=== PATIENT | male | born 1955 | race Caucasian/White ===

== ENCOUNTER 2018-08-10 22:14 | Emergency (ER) | payer OTHER ==
[2018-08-10 22:17] VITALS: TEMP 98.4; BMI 25.1
--- NOTE | 2018-08-11 00:16 | PDOC ---
History of Present Illness - General Chief Complaint: Asthma Stated Complaint: ASTHMA Time Seen by Provider: 08/11/18 00:15 History Source: Patient Exam Limitations: No Limitations - History of Present Illness Initial Comments: 08/11/18 00:30 63 year old male with PMH asthma, HTN, HLD presented to ED for shortness of breath x2 days. Pt stated he moved into a new apartment 2-3 weeks ago, that was recently found to have mold. Pt admitted to shortness of breath, cough (brown sputum), subjective fever, nausea. Pt had sore throat, runny nose x3 days ago that resolved. Pt denied chest pain, lower extremity swelling, vomiting, diarrhea, abdominal pain, blood in urine. Pt stated he normally uses his rescue inhaler <1X a month, but has been using it 7-8X a day in the last 2 days without relief of his symptoms. Past History - Past Medical History Allergies/Adverse Reactions: Allergies Allergy/AdvReac Type Severity Reaction Status Date / Time No Known Allergies Allergy Verified 08/10/18 22:18 Home Medications: Ambulatory Orders Albuterol 0.083% Nebulizer Sridevi [Ventolin 0.083% Nebulizer Soln -] 1 neb NEB Q4H #30 vial 08/11/18 Nebulizer Accessories [Adult Aerosol Mask] 1 each MC DAILY #1 each 08/11/18 Nebulizer [Compact Ultrasonic Nebulizer] 1 each MC DAILY #1 each 08/11/18 levoFLOXacin [Levaquin] 750 mg PO DAILY #6 tab 08/11/18 predniSONE [Deltasone -] 40 mg PO DAILY #8 tablet 08/11/18 Asthma: Yes COPD: No HTN: Yes - Suicide/Smoking/Psychosocial Hx Smoking History: Never smoked Review of Systems - Review of Systems Able to Perform ROS?: Yes Comments:: 08/11/18 00:34 General: admitted to subjective fever. denied generalized weakness. HEENT: denied sore throat, rhinorrhea, ear pain. Heart: denied chest pain, palpitations, syncope, lower extremity swelling, diaphoresis. Respiratory: admitted to shortness of breath, cough, sputum production. denied hemoptysis. Abdomen: admitted to nausea. denied abdominal pain, vomiting, diarrhea, constipation, blood in stool. : denied dysuria, increased urinary frequency, hematuria, urinary incontinence , flank pain. Back: denied back pain. Musculoskeletal: denied joint pain, muscle pain, joint swelling. Neurological: denied headache, dizziness, numbness, tingling, weakness. Skin: denied rash, laceration, abrasion. *Physical Exam - Vital Signs Last Vital Signs Temp Pulse Resp BP Pulse Ox 98.4 F 76 20 187/87 H 95 08/10/18 22:15 08/10/18 22:15 08/10/18 22:15 08/10/18 22:15 08/10/18 22:15 - Physical Exam Comments: 08/11/18 00:34 Constitutional: Well-nourished, Well-developed, appearing stated age. HEENT: head is normocephalic, atraumatic. EOMI. PERRLA. Neck: supple. Full ROM. Heart: regular rhythm. no murmurs, rubs or gallops. Lungs: bilateral wheezing, bilateral rhonchi, coarse break sounds, poor air movement. Abdomen: soft, nontender. normal bowel sounds. no rebound, guarding, masses. Extremities: Peripheral pulses intact. No lower extremity edema. Neurological: CN 2-12 grossly intact. Moves all four extremities. Psych: awake, alert, oriented x3. Follows commands. Answers questions appropriately. Vital Signs - Vital Signs #2 Blood Pressure: 150/93 MAP: 112 BP Location: Right Arm Blood Pressure Position: Sitting Pulse Rate: 71 Respiratory Rate: 14 Moderate Sedation - Procedure Monitoring Vital Signs: Procedure Monitoring Vital Signs Temperature 98.4 F 08/10/18 22:15 Pulse Rate 76 08/10/18 22:15 Respiratory Rate 20 08/10/18 22:15 Blood Pressure 187/87 H 08/10/18 22:15 O2 Sat by Pulse Oximetry (%) 95 08/10/18 22:15 ED Treatment Course - LABORATORY CBC & Chemistry Diagram: 08/11/18 01:28 08/11/18 01:28 Medical Decision Making - Medical Decision Making 08/11/18 00:35 63 year old male with above PMH presented to ED for cough, shortness of breath, nausea after recent mold exposure. Initial Vital Signs Temp Pulse Resp BP Pulse Ox 98.4 F 76 20 187/87 H 95 08/10/18 22:15 08/10/18 22:15 08/10/18 22:15 08/10/18 22:15 08/10/18 22:15 Afebrile. No tachycardia. No tachypnea. Hypertensive. - Pt stated he took his prescribed propranolol 80 mg today No hypoxia on room air, but borderline. Labs ordered: CBC, CMP, troponin, BNP, TSH, influenza Imaging ordered: CXR Medications ordered: duonebs, solumedrol, tylenol 08/11/18 02:31 CXR: sharp costophrenic angles. no infiltrate. no cardiomegaly. no congestive changes. Pending official read. CBC WBC 9.2 K/mm3 (4.0-10.0) 08/11/18 01:28 RBC 4.72 M/mm3 (4.00-5.60) 08/11/18 01:28 Hgb 15.1 GM/dL (11.7-16.9) 08/11/18 01:28 Hct 42.4 % (35.4-49) 08/11/18 01:28 MCV 89.8 fl (80-96) 08/11/18 01:28 MCH 32.1 pg (25.7-33.7) 08/11/18 01:28 MCHC 35.8 g/dl (32.0-35.9) 08/11/18 01:28 RDW 13.9 % (11.9-15.9) 08/11/18 01:28 Plt Count 236 K/MM3 (134-434) 08/11/18 01:28 MPV 9.3 fl (7.5-11.1) 08/11/18 01:28 Absolute Neuts (auto) 6.1 K/mm3 (1.5-8.0) 08/11/18 01:28 Neutrophils % 66.6 % (42.8-82.8) 08/11/18 01:28 Lymphocytes % 13.4 % (8-40) 08/11/18 01:28 Monocytes % 9.8 % (3.8-10.2) 08/11/18 01:28 Eosinophils % 9.7 % (0-4.5) H 08/11/18 01:28 Basophils % 0.5 % (0-2.0) 08/11/18 01:28 Nucleated RBC % 0 % (0-0) 08/11/18 01:28 Afebrile. No anemia. 08/11/18 02:38 Pt reassessed, reported improvement in SOB. Lungs clear on auscultation. Pt requesting additional duoneb. - Above ordered Vitals repeated. Vital Signs Pulse Rate 71 08/11/18 02:39 Respiratory Rate 14 08/11/18 02:39 Blood Pressure 150/93 08/11/18 02:39 O2 Sat by Pulse Oximetry (%) 93 08/10/18 02:39 Blood pressure decreased after treatment. Will continue to monitor. 08/11/18 03:19 CMP Sodium 135 mmol/L (136-145) L 08/11/18 01:28 Potassium 5.0 mmol/L (3.5-5.1) 08/11/18 01:28 Chloride 103 mmol/L (98-107) 08/11/18 01:28 Carbon Dioxide 23 mmol/L (21-32) 08/11/18 01:28 Anion Gap 9 MMOL/L (8-16) 08/11/18 01:28 BUN 22 mg/dL (7-18) H 08/11/18 01:28 Creatinine 1.0 mg/dL (0.55-1.3) 08/11/18 01:28 Creat Clearance w eGFR > 60 (>60) 08/11/18 01:28 Random Glucose 86 mg/dL (74-106) 08/11/18 01:28 Calcium 8.4 mg/dL (8.5-10.1) L 08/11/18 01:28 Total Bilirubin 1.4 mg/dL (0.2-1) H 08/11/18 01:28 AST 32 U/L (15-37) 08/11/18 01:28 ALT 28 U/L (13-61) 08/11/18 01:28 Alkaline Phosphatase 88 U/L (45-117) 08/11/18 01:28 Troponin I < 0.02 ng/ml (0.00-0.05) 08/11/18 01:28 B-Natriuretic Peptide 280.5 pg/ml (5-125) H 08/11/18 01:28 Total Protein 7.0 g/dl (6.4-8.2) 08/11/18 01:28 Albumin 3.7 g/dl (3.4-5.0) 08/11/18 01:28 TSH 2.63 uIU/ml (0.358-3.74) 08/11/18 01:28 Normal electrolytes. No DELMAR. No transaminitis. Mildly elevated BNP. Normal TSH. No prior lab work to compare. Influenza testing negative. 08/11/18 03:33 Pt reported improvement in symptoms and would like to go home. Pt will be discharged with prednisode, levaquin, and albuterol solution/ nebulizer prescription. Pt informed to follow up with PCP. Pt advised to avoid mold exposed areas. *DC/Admit/Observation/Transfer Diagnosis at time of Disposition: Asthma exacerbation, Mold exposure, Shortness of breath, Cough - Discharge Dispostion Disposition: HOME Condition at time of disposition: Improved Decision to Admit order: No - Prescriptions Prescriptions: Albuterol 0.083% Nebulizer Sridevi [Ventolin 0.083% Nebulizer Soln -] 1 neb NEB Q4H #30 vial levoFLOXacin [Levaquin] 750 mg PO DAILY #6 tab Nebulizer [Compact Ultrasonic Nebulizer] 1 each MC DAILY #1 each Nebulizer Accessories [Adult Aerosol Mask] 1 each MC DAILY #1 each predniSONE [Deltasone -] 40 mg PO DAILY #8 tablet - Referrals Referrals: Evaristo Sol MD [Primary Care Provider] - - Patient Instructions Printed Discharge Instructions: Asthma -- Adult Additional Instructions: DOCTOR'S RECOMMENDATIONS: You were seen today for an asthma exacerbation, this was likely caused prolonged mold exposure. Do not sleep in any area contaminated with mold. Medications: 1) Levaquin to treat any lung infection that may be present, take as advised on label. 2) Prednisone to decreased inflammation, take as advised on label. 3) Nebulizer every 4 hours as needed for shortness of breath Follow up: 1) Primary care doctor in 1-3 days Return to the Emergency Department for shortness of breath, chest pain, or any other new, worsening or concerning symptoms. - Post Discharge Activity Forms/Work/School Notes: Back to Work
--- NOTE | 2018-08-11 00:29 | PDOC ---
Attending Attestation - Resident Resident Name: Elodia Sarkar - ED Attending Attestation I have performed the following: I have examined & evaluated the patient, The case was reviewed & discussed with the resident, I agree w/resident's findings & plan, Exceptions are as noted - Medical Decision Making 08/11/18 00:29 I, Dr. Shannan Bone, DO, attest that this document has been prepared under my direction and personally reviewed by me in its entirety. I further attest, that it accurately reflects all work, treatment, procedures and medical decision -making performed by me. 08/11/18 01:21 a/p: 63yo male with hx of asthma with recent flare up -coughing, brown and yellow sputum -subjective fever today -feels achy -wheezing and sob -will send labs, ekg, cxr -concern for flu vs pna vs mucopurulent bronchitis -will give nebs, steroids -will monitor and reassess <Shannan Bone - Last Filed: 08/11/18 01:21> - HPI HPI: 08/11/18 01:24 The patient is a year old male, with a significant past medical history of asthma, HTN, HLD, who presents to the emergency department with, 2 days of shortness of breath. Patient endorses moving into a new apartment which was found to have mold. He notes today he has new onset of a productive cough and fever (Tmax 100F). He denies any recent headache or dizziness. He denies any recent nausea, vomit, diarrhea or constipation. He denies any recent chest pain or palpitations. He denies any recent dysuria, frequency, urgency or hematuria. Allergies: NKDA Primary Care Physician: Dr. Sol - Physicial Exam PE: 08/11/18 01:24 Constitutional: Awake, alert, oriented. No acute distress. Head: Normocephalic. Atraumatic ENT: Mucous membranes are moist and intact. +Posterior pharynx mild erythema without exudates. Uvula midline. Neck: Supple. Full ROM. No lymphadenopathy. Cardiovascular: Regular rate. Regular rhythm. S1, S2 regular. Distal pulses are 2+ and symmetric. +Pulmonary/Chest: Mild wheezing bilaterally better after coughing, non- rhonchorus. No rales. Abdominal: Soft and non-distended. There is no tenderness. No rebound, guarding or rigidity. No organomegaly. No palpable masses. Good bowel sounds. Back: No CVA tenderness. Musculoskeletal: No edema. No cyanosis. No clubbing. Full range of motion in all extremities. No calf tenderness. Radial/pedal pulses are intact and 2+ bilaterally Skin: Skin is warm and dry. No petechiae. No purpura. Neurological: Alert and oriented to person, place, and time. Cranial nerves II -XII are grossly intact. Normal speech. Strength is grossly symmetric. No sensory deficits. Psychiatric: Good eye contact. Normal interaction, affect and behavior. <Fernando Verdugo - Last Filed: 08/11/18 01:25> Attestations - Attestations 08/11/18 01:25 Documentation prepared by Fernanod Verdugo, acting as medical nurse for Shannan Bone DO. <Fernando Verdugo - Last Filed: 08/11/18 01:25>
[2018-08-11] MEDS ORDERED: methylPREDNISolone NA SUCC 125 MG/2 ML VIAL IVPB ONE (00:30)
[2018-08-11] MEDS ORDERED: ALBUTEROL SO4 2.5/IPRATROPIUM 0.5 INH SOL 3 ML VIAL.NEB. NEB ONE ×5 (00:30→03:18)
[2018-08-11] MEDS ORDERED: ACETAMINOPHEN 325 MG TABLET (FP) PO ONE (00:37)
[2018-08-11] MEDS ORDERED: ACETAMINOPHEN 325 MG TABLET (FP) ONE (01:14)
[2018-08-11] MEDS ORDERED: methylPREDNISolone NA SUCC 125 MG/2 ML VIAL ONE (01:14)
[2018-08-11 01:50] LABS: BASO % 0.5 % (0-2.0); EOS % 9.7 % (0-4.5); HEMATOCRIT 42.4 % (35.4-49); HEMOGLOBIN 15.1 GM/dL (11.7-16.9); LYMPH % 13.4 % (8-40); MCH 32.1 pg (25.7-33.7); MCHC 35.8 g/dl (32.0-35.9); MEAN CELL VOLUME 89.8 fl (80-96); MEAN PLT VOLUME 9.3 fl (7.5-11.1); MONO % 9.8 % (3.8-10.2); NEUT % 66.6 % (42.8-82.8); PLATELET COUNT 236 K/MM3 (134-434); RBC 4.72 M/mm3 (4.00-5.60); RDW 13.9 % (11.9-15.9); WHITE BLOOD COUNT 9.2 K/mm3 (4.0-10.0)
[2018-08-11 02:38] LABS: ALBUMIN 3.7 g/dl (3.4-5.0); ALK PHOS 88 U/L (45-117); ANION GAP 9 MMOL/L (8-16); BILIRUBIN,TOTAL 1.4 mg/dL (0.2-1); BLOOD UREA NITROGEN 22 mg/dL (7-18); CALCIUM 8.4 mg/dL (8.5-10.1); CHLORIDE 103 mmol/L (98-107); CO2 23 mmol/L (21-32); GLUCOSE,RANDOM 86 mg/dL (74-106); N-TERMINAL BNP 280.5 pg/ml (5-125); SGOT/AST 32 U/L (15-37); SGPT/ALT 28 U/L (13-61); SODIUM 135 mmol/L (136-145)
[2018-08-11 02:39] VITALS: BP 150/93; PULSE 71
--- NOTE | 2018-09-21 08:30 | EKG ---
Test Reason : Blood Pressure : / mmHG Vent. Rate : 072 BPM Atrial Rate : 072 BPM P-R Int : 158 ms QRS Dur : 094 ms QT Int : 434 ms P-R-T Axes : 049 -26 017 degrees QTc Int : 475 ms NORMAL SINUS RHYTHM NORMAL ECG NO PREVIOUS ECGS AVAILABLE Confirmed by BRIAN HAMMER MD ([id number]) on 08/11/2018 9:07:32 AM Also confirmed by BRIAN HAMMER MD ([id number]), editor in chief CURLY TARANGO ([id number]) on 09/21/2018 8:30:11 AM Referred By: Confirmed By:BRIAN HAMMER MD
== END 2018-08-11 03:42 | disposition home or self-care (01) ==
LOC: JER 22:14
PROC: 3E0333Z Introduction of Anti-inflammatory into Peripheral Vein, Percutaneous Approach (ICD-10-PCS; principal; 2018-08-10)
PROC: 3E0F7GC Introduction of Other Therapeutic Substance into Respiratory Tract, Via Natural or Artificial Opening (ICD-10-PCS; 2018-08-10)
PROC: 3E0F7GC Introduction of Other Therapeutic Substance into Respiratory Tract, Via Natural or Artificial Opening (ICD-10-PCS; 2018-08-10)
DX: J45.901 Unspecified asthma with (acute) exacerbation (principal); Z77.120 Contact with and (suspected) exposure to mold (toxic)
CPT/HCPCS: 36415; 71046-TC-FY; 80053; 83880; 84443; 84484; 85025; 87804; 93005; 93010; 99283-25

== ENCOUNTER 2021-09-14 00:31 | Emergency (ER) | payer OTHER ==
[2021-09-14 00:48] VITALS: BP 144/89; PULSE 68; TEMP 98; BMI 26.2
[2021-09-14] MEDS ORDERED: KETOROLAC TROMETHAMINE 30 MG/1 ML VIAL IM ONE (01:42)
[2021-09-14] MEDS ORDERED: KETOROLAC TROMETHAMINE 30 MG/1 ML VIAL ONE (01:57)
== END 2021-09-14 03:33 | disposition home or self-care (01) ==
LOC: JER 00:31
DX: S22.42XA Multiple fractures of ribs, left side, initial encounter for closed fracture (principal); W00.9XXA Unspecified fall due to ice and snow, initial encounter
CPT/HCPCS: 71046-TC-FY; 71111-TC-FY; 99284-25